=== PATIENT | female | born 2005 | race Caucasian/White ===

== ENCOUNTER 2025-07-05 11:42 | Emergency (ER) | payer OTHER, SELFPAY ==
[2025-07-05 12:08] VITALS: BP 142/93; PULSE 97; RESP 16; TEMP 36.3; O2SAT 98; BMI 17.2
[2025-07-05 12:28] LABS: Appearance Urine Clear (Clear)
[2025-07-05 12:29] LABS: Ur HCG Qualitative* Negative (Negative)
--- NOTE | 2025-07-05 12:50 | CRLHL7_ITS ---
For Patients: As a result of the Century Cures Act, medical imaging exams and procedure reports are released immediately into your electronic medical record. You may view this report before your referring provider. If you have questions, please contact your health care provider. Indication: crampy abdominal pain Was with miscarriage 2 wks ago crampy abd pain; no vaginal bleeding Technique: Real-time sonographic images of the pelvis were obtained transvaginally (for better assessment or to better visualize the endometrium) utilizing grayscale, color, and spectral doppler imaging. Comparison: None. Findings: Uterus: Appearance: Normal. Position: Retroflexed. Size: 6.6 x 3.4 x 4.8 cm. Endometrial stripe: 5 mm. Right ovary: Size: 2.9 x 1.2 x 1.6 cm. Appearance: Normal morphology. No masses. Preserved blood flow. Left ovary: Size: 3.2 x 1.4 x 1.3 cm. Appearance: Normal morphology. No masses. Preserved blood flow. Free fluid: Small amount of free fluid in the right adnexa. Impression: 1. Small amount of nonspecific free fluid in the right adnexa. 2. Otherwise, normal sonographic appearance of the female pelvis. No evidence of retained products of conception. Dictated by Benson Beatty MD @ 07/05/2025 2:21:36 PM (Electronically Signed)
--- NOTE | 2025-07-05 12:52 | ED.ABDPAIN ---
HPI - Abdominal Pain General Chief Complaint: Abdominal Pain Stated Complaint: abdominal pain Time Seen by Provider: 07/05/25 12:18 History of Present Illness HPI narrative: This 20-year-old female comes in reporting crampy abdominal pain that began this morning. She does not report any vaginal discharge. She states that she was for about 4 weeks until 2 weeks ago when she had heavy cramping and menses with clots. She assumed at that time that she had a missed carriage. She was feeling okay until today when she had return if cramping without any vaginal discharge. She arrives here with normal vital signs and has no other complaints. She has not rechecked for since then. Related Data Home Medications ?Medication ?Instructions ?Recorded ?Confirmed fluoxetine 20 mg capsule (Prozac) 20 mg PO DAILY 07/05/25 07/05/25 hydralazine 50 mg tablet 50 mg PO BID PRN 07/05/25 07/05/25 Previous Rx's ?Medication ?Instructions ?Recorded ketorolac 10 mg tablet 10 mg PO TID 5 days #15 tabs 07/05/25 Allergies Allergy/AdvReac Type Severity Reaction Status Date / Time No Known Drug Allergies Allergy Verified 07/05/25 12:08 Review of Systems Status of ROS Reports: 10 or more systems reviewed and unremarkable except as noted in History and below Narrative Constitutional: No fevers, no weight gain or loss. Eyes: No discharge. No vision changes. HENT: No congestion, no sore throat, no ear pain. Cardiovascular: No chest pain, no palpitations. Respiratory: No shortness of breath, no wheezes, no cough. Gastrointestinal: No vomiting, no diarrhea. Crampy abdominal pain as described above. Genitourinary: No dysuria, no hematuria. Musculoskeletal: Normal range of motion. Skin: No rashes, no pruritis. Neurological: No dizziness, weakness, sensory change, speech change. Endo/Heme/Allergies: No bruising or bleeding. No polydipsia. Pysch: no suicidality, no anxiety, no insomnia. All other systems reviewed and are negative. PFS PFS Social History Smoking Status: Never smoker Do you use any of these nicotine containing products: None Second hand tobacco smoke exposure: No How often do you have a drink containing alcohol: never AUDIT-C Alcohol total score: 0 Non-prescribed substance use: denies use Exam Narrative: Exam Narrative: Constitutional: Well-developed, well-nourished, no acute distress. HEENT: Normocephalic, atraumatic. Neck: Normal range of motion. Nontender. Supple. Heart: Regular. No murmurs. Normal rate. Intact distal pulses. Lungs: Clear to auscultation. No chest discomfort. No wheezes, rhonchi, or rales. Abdomen: Normal bowel sounds. Diffuse tenderness across the lower abdomen. No rebound tenderness. Genitalia: Deferred. Back: No midline tenderness. Normal range of motion. Extremities: Normal range of motion. No injury. Skin: Intact. No rash. Warm. No erythema or pallor. Neurologic: No altered sensation. No weakness. Alert and oriented. Psychiatric: No suicidality. No anxiety or depression. No insomnia. Nursing notes and vitals signs are reviewed. Const: Vital Signs, click to edit/add: Vital Signs - 24 hr 07/05/25 12:08 Temperature 97.3 F L Pulse Rate [Pulse Oximeter] 97 Respiratory Rate 16 Blood Pressure [Ri ght Upper Arm] 142/93 H Pulse Oximetry 98 Oxygen Delivery Me thod Room Air Course Vital Signs Vital signs: Initial Vital Signs Temperature 97.3 F L 07/05/25 12:08 Temperature Source Temporal Artery Scan 07/05/25 12:08 Pulse Rate 97 07/05/25 12:08 Respiratory Rate 16 07/05/25 12:08 Blood Pressure 142/93 H 07/05/25 12:08 Blood Pressure Mean 109 H 07/05/25 12:08 Pulse Oximetry 98 07/05/25 12:08 Oxygen Delivery Method Room Air 07/05/25 12:08 Vital Signs Temperature 97.3 F L 07/05/25 12:08 Pulse Rate 97 07/05/25 12:08 Respiratory Rate 16 07/05/25 12:08 Blood Pressure 142/93 H 07/05/25 12:08 Pulse Oximetry 98 07/05/25 12:08 Oxygen Delivery Method Room Air 07/05/25 12:08 Temperature 97.3 F L 07/05/25 12:08 Pulse Rate 97 07/05/25 12:08 Respiratory Rate 16 07/05/25 12:08 Blood Pressure 142/93 H 07/05/25 12:08 Pulse Oximetry 98 07/05/25 12:08 Oxygen Delivery Method Room Air 07/05/25 12:08 MDM - Abdominal Pain MDM Narrative Medical decision making narrative: This patient comes in reporting crampy abdominal pain and states that she believes that she had a miscarriage a couple weeks ago. He arrives here with reassuring vital signs and does not appear to be in significant distress. I did discuss lab and imaging options with her and she is interested in having a ultrasound to check for any abnormality regarding her recent . This was obtained and shows normal findings which is reassuring to the patient. She did receive an oral dose of Toradol 10 mg and a prescription for the same. Lab Data Labs: Lab Results 07/05/25 Range/Units 12:23 Urine Color Yellow (Yellow) Urine Appearance Clear (Clear) Urine pH 6.5 (5.0-8.5) Ur Specific Commodore 1.010 (1.000-1.030) Urine Protein Negative (Negative) Urine Glucose (UA) Negative (Negative) Urine Ketones Negative (Negative) Urine Blood Negative (Negative) Urine Nitrite Negative (Negative) Urine Bilirubin Negative (Negative) Urine Urobilinogen 1.0 (0.2-1.0) Ur Leukocyte Esterase Negative (Negative) Urine RBC 0-2 (0-2) Urine WBC 0-2 (0-5) Ur Squamous Epith Cells None (None-Few) Urine Bacteria None (None) Urine HCG, Qual Negative (Negative) Discharge Plan Discharge Clinical Impression: Abdominal pain Patient Disposition: Home, Self-Care Condition: Stable Additional Instructions: Take medication as needed and indicated. Activity as tolerated. Follow up with MD or return if worsening symptoms occur. Prescriptions: New ketorolac 10 mg tablet 10 mg PO TID 5 Days Qty: 15 0RF No Action hydralazine 50 mg tablet 50 mg PO BID PRN fluoxetine [Prozac] 20 mg capsule 20 mg PO DAILY Follow Up/Referrals: Provider,Not a Local [Primary Care Provider, Family Practice] Stand Alone Forms: [employer] Info Instructions
--- OUTSIDE RECORDS SUMMARY | 2025-07-05 13:07 | XMS_ITS | Encounter Summary ---
Author Organization [facility] Address [address] [place] [address] Care Team Providers Care Medical And Scientific Illustrator Name Role Phone Emi Gorman D.O. Primary Care Provider [phone] Reason for Visit * Reason Comments Med Refill Encounter Details Date Type Department Care Team (Late st Contact Info) Description 05/24/2025 Refill Department of Family Medicine, [facility], in [place], [place] [address] [place] [address] Willow Gonzalez APRN, C.N.P., D.N.P. [address] [place] [address] Med Refill Social History Tobacco Use Types Packs/Day Years Used Date Smoking Tobacco: Never Passive Smoke Exposure: Never Smokeless Tobacco: Never Alcohol Use Standard Drinks/Week Comments Yes 0 (1 standard drink = 0.6 oz pure alcohol) I only consume alcohol approximately once a month [facility] Utilities Answer Date Recorded In the past 12 months has [facility] [employer], gas, oil, or water [employer] threatened to shut off services in your home? No 03/24/2024 Humiliation, Afraid, Rape, and Kick questionnair e Answer Date Recorded Within the last year, have y ou been afraid of your partner or ex-partner? No 05/13/2022 Within the last year, have y ou been humiliated or emotionally abused in other ways by your partner or ex-partner? No Within the last year, have y ou been kicked, hit, slapped, or otherwise physically hurt by your partner or ex-partner? No 05/13/2022 Within the last year, have y ou been raped or forced to have any kind of sexual activity by your partner or ex-partner? No 05/13/2022 Hunger Vital Sign Answer Date Recorded Within the past 12 months, y ou worried that your food would run out before you got the money to buy more. Never true 03/24/20 Within the past 12 months, t he food you bought just didn't last and you didn't have money to get more. Never true 03/24/2024 PRAPARE - Transportation Answer Date Re corded In the past 12 months, has l ack of transportation kept you from medical appointments or from getting medications? No 03/02 In the past 12 months, has l ack of transportation kept you from meetings, work, or from getting things needed for daily living? No 03/24/2024 Depression Answer Date Recor ded PHQ-9 Total Score (max 27) 0 02/08 Housing Stability Answer Date Recorded What is your living situation today? [facility] 03/24/2024 Education Answer Date Recorded What is the highest level of school you have completed or the highest degree you have received? Some college, no degree 05/13/2022 Comments No Sex and Gender Information Value Date Recorded Sex Assigned at Female 03/09/2022 10:57 AM CDT Legal Sex Female 4:16 AM NURSING HOME SOCIAL WORKER Gender Identity Female 03/09/2022 10:57 AM CDT Sexual Orientation Straight 03/09/2022 10 :57 AM CDT documented as of this encounter Miscellaneous Notes * Telephone Encounter - Airam Adams - 05/26/2025 6:20 AM CDT Refills remain from 01/05/25 documented in this encounter Plan of Treatment Not on file documented as of this encounter Visit Diagnoses Not on filedocumented in this encounter Additional Health Concerns Assessment Noted Time PHQ-9 Depression Total Score: 0 02/09/20 2:49 PM CDT documented as of this encounter Care Teams Medical And Scientific Illustrator Relationship Specialty Start Date End Date Emi Gorman D.O. [address] [place] [phone] PCP - General Family Medicine 10/07/19 documented as of this encounter
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
[2025-07-05] MEDS: KETOROLAC 10 MG TABLET PO (13:46)
== END 2025-07-05 13:49 | disposition home or self-care (01) ==
PROVIDERS: Emergency Provider Emergency Medicine Emergency Medical Services
DX: R10.9 Unspecified abdominal pain (principal)
CPT/HCPCS: 76830; 81001; 81025; 93976; 99284; A9270